=== PATIENT | female | born 1995 | race African-American/Black ===

== ENCOUNTER 2017-08-21 10:19 | Emergency (ER) | payer SELFPAY ==
[~2017-08-21] VITALS: Ht 165.1 cm; Wt 59.0 kg
[2017-08-21] MEDS ORDERED: AMOX500C2 PO (10:52)
--- NOTE | 2017-08-21 10:52 | ED EENT ---
History of Present Illness General Chief Complaint: Oral/Throat Problems Stated Complaint: SINUS INFECTION, L LYMPNODE SWELLING AND EAR PAIN Nursing Triage Note: ARRIVED VIA AMB TO ROOM 09. COMPLAINS OF LEFT SIDED LYMPH NODE PAIN ALONG WITH LEFT SIDED EAR PAIN. Source: patient Exam Limitations: no limitations History of Present Illness Time seen by provider: 10:40 Initial Comments Here with report of frontal sinus congestion with left node swelling on the left and left ear fullness. Moderate runny nose and congestion. States that she has history of frequent sinus infections that usually get better with amoxicillin. Denies nausea, vomiting or diarrhea. Denies breathing problems but does have some cough. Timing/Duration: other (4-5 days) Severity: moderate Location: ear (L), nose, throat, facial Prearrival Treatment: over the counter meds Associated Symptoms: cough, facial pain/swelling, nasal congestion/drainage, sinus infection, sore throat Allergies and Home Medications Allergies Coded Allergies: mushroom (Verified Allergy, Severe, 08/21/17) Home Medications No Active Prescriptions or Reported Meds Review of Systems Constitutional: see HPI, No chills, No fever Eyes: No Symptoms Reported Ears: See HPI Nose: pain Mouth: no symptoms reported Throat: see HPI, denies neck stiffness Respiratory: cough, No short of breath Cardiovascular: no symptoms reported Gastrointestinal: no symptoms reported Skin: no symptoms reported Neurological: No Symptoms Reported Past [id number] Hx Patient Social History Alcohol Use: Denies Use Recreational Drug Use: No Smoking Status: Never a Smoker Recent Foreign Travel: No Contact w/Someone Who Travel: No Recent Infectious Disease Expo: No Recent Hopitalizations: No Seasonal Allergies Seasonal Allergies: No Surgeries History of Surgeries: No Respiratory History of Respiratory Disorde: No Cardiovascular History of Cardiac Disorders: No Neurological History of Neurological Disord: No Reproductive System : No Last Menstrual Period: Jul 28, 2017 Genitourinary History of Genitourinary Disor: No Gastrointestinal History of Gastrointestinal Di: No Musculoskeletal History of Musculoskeletal Dis: No Endocrine History of Endocrine Disorders: No HEENT History of HEENT Disorders: No Cancer History of Cancer: No Psychosocial History of Psychiatric Problem: No Integumentary History of Skin or Integumenta: No Reviewed Nursing Assessment Reviewed/Agree w Nursing PMH: Yes Physical Exam Vital Signs Vital Sign - Last 12Hours 08/21/17 10:25 Temp 99.0 Pulse 92 Resp 16 B/P (MAP) 118/56 (76) Pulse Ox 97 General Appearance: WD/WN, no apparent distress Eyes: bilateral eye normal inspection, bilateral eye PERRL, bilateral eye EOMI Ears: bilateral ear TM dull, bilateral ear TM bulging, bilateral ear other (no purulence noted to either ear and no redness noted.) Nose: sinus tenderness (bilateral frontal), other (moderate bilateral nasal congestion with purulent rhinorrhea on the right.) Mouth/Throat: pharynx tenderness, No tonsillar exudate, tonsillar swelling Neck: full range of motion, supple Cardiovascular: regular rate, rhythm, no murmur Respiratory: lungs clear, normal breath sounds Gastrointestinal: non tender, soft Neurologic/Psychiatric: alert, oriented x 3 Skin: normal color, warm/dry Progress/Results/Core Measures Results/Orders Vital Signs/I&O Vital Sign - Last 12Hours 08/21/17 10:25 Temp 99.0 Pulse 92 Resp 16 B/P (MAP) 118/56 (76) Pulse Ox 97 Blood Pressure Mean: 76 Progress Note : Progress Note Seen and evaluated. Discharged home with return precautions. Patient verbalize understanding instructions and agreement with plan. Departure Impression Impression: Primary Impression: Sinusitis Qualified Codes: J01.10 - Acute frontal sinusitis, unspecified Disposition: HOME, SELF-CARE Condition: Improved Departure-Patient Inst. Decision time for Depature: 10:50 Referrals: NO,LOCAL PHYSICIAN (PCP/Family) Primary Care Physician Patient Instructions: Sinusitis, Adult (DC) Add. Discharge Instructions: All discharge instructions reviewed with patient and/or family. Voiced understanding. Take medications as directed. Follow-up with your doctor or [facility] in a few days for recheck and further evaluation. Return for worse pain, fever, vomiting, weakness, breathing problems or other concerns as needed. You may take Afrin nasal spray or the generic, 12 hour relief, 2 sprays to each nostril twice daily for 3 days only and then stop. Do not use more than 3 days. You may take ibuprofen 600 mg every 8 hours as needed for fever or pain. You may take Tylenol 1000 mg every 8 hours as needed for fever or pain. Drink plenty of fluids. Scripts Amoxicillin (Amoxicillin) 500 Mg Capsule 1000 MG PO TID, #60 CAP 0 Refills Prov: STEFANY MARTINEZ MD 08/21/17 STEFANY MARTINEZ MD Aug 21, 2017 10:52
[2017-08-21 10:56] VITALS: BP 118/56
== END 2017-08-21 10:56 | disposition home or self-care (01) ==
LOC: ER 10:19
DX: J32.9 Chronic sinusitis, unspecified (principal)
CPT/HCPCS: 99282